=== PATIENT | female | born 1970 | race Caucasian/White ===

== ENCOUNTER 2016-10-23 09:15 | Emergency (ER) | payer BC ==
[~2016-10-23] VITALS: Ht 170.2 cm; Wt 126.5 kg
[~2016-10-23 09:15] MED LIST: ALPRAZOLAM0.5 MG PO; ATENOLOL25 MG PO; BUPROPION XL150 MG PO; CYCLOBENZAPRINE10 MG PO; FLUOXETINE HCL20 MG PO; HYDROCODON-ACE1 EAC7 PO; IBUPROFEN800 MG PO; METOPROLOL SUCC50 MG PO; NAPROSYN500 MG PO; NAPROXEN500 MG PO; OMEPRAZOLE40 M1 PO; QVAR 80 MCG IN7.3 GM IH; TESSALON PERLE100 MG PO; VENTOLIN HFA18 GM IH; ZYRTEC10 M3 PO
[2016-10-23] MEDS ORDERED: PRENATAL VITAM1 EA10 PO (09:46)
[2016-10-23 10:37] LABS: INFLUENZA A VIRAL ANTIGEN POSITIVE; INFLUENZA B VIRAL ANTIGEN NEGATIVE
[2016-10-23 11:09] VITALS: BP 131/87
== END 2016-10-23 11:21 | disposition home or self-care (01) ==
LOC: EME 09:15
PROVIDERS: Emergency Medicine
DX: J10.1 Influenza due to other identified influenza virus with other respiratory manifestations (principal); J45.909 Unspecified asthma, uncomplicated; I10 Essential (primary) hypertension; Z87.891 Personal history of nicotine dependence
CPT/HCPCS: 71020; 87502; 87651 90; 99281; 99284

== ENCOUNTER 2016-10-30 18:49 | Emergency (ER) | payer BC ==
[~2016-10-30] VITALS: Ht 170.2 cm; Wt 128.2 kg
[~2016-10-30 18:49] MED LIST changes: +PRENATAL VITAM1 EA10 PO
[2016-10-30] MEDS ORDERED: VENTOLIN HFA18 GM IH (22:03)
[2016-10-30] MEDS ORDERED: AUGMENTIN875 MG PO (22:03)
[2016-10-30] MEDS ORDERED: MEDROL DOSEPAK4 MG PO (22:03)
[2016-10-30 22:37] VITALS: BP 158/94
== END 2016-10-30 22:39 | disposition home or self-care (01) ==
LOC: EME 18:49 → EXP 18:49
DX: J32.9 Chronic sinusitis, unspecified (principal); J45.909 Unspecified asthma, uncomplicated
CPT/HCPCS: 94640; 99281; 99284; J7512